=== PATIENT | female | born 1975 | race Caucasian/White ===

== ENCOUNTER 2021-03-09 16:52 | Emergency (ER) | payer MEDICAID ==
[~2021-03-09] VITALS: Ht 167.6 cm; Wt 94.3 kg
[2021-03-09 16:57] VITALS: BP_SYST 131
[2021-03-09] MEDS ORDERED: NACL 0.9% 1,000 ML IV SCH (17:15)
== END 2021-03-09 17:30 | disposition home or self-care (01) ==
LOC: SED 16:52
DX: R42 Dizziness and giddiness (principal); R06.02 Shortness of breath
CPT/HCPCS: 71045; 93005; 99283